=== PATIENT | male | born 1965 | race Caucasian/White ===

== ENCOUNTER 2018-09-06 00:39 | Emergency (ER) | payer OTHER, MEDICAID, SELFPAY ==
[2018-09-06] VITALS (7 sets, daily range): BP systolic 84–156; BP diastolic 48–114; PULSE 82–113; RESP 13–20; TEMP 37.7; O2SAT 97–100; BMI 27.3
[2018-09-06] MEDS: NITROGLYCERIN 0.4 MG SL TAB SL ×2 (00:42→00:52)
--- NOTE | 2018-09-06 00:50 | DI.RAD.S_ITS ---
PROCEDURE: XR CHEST 1V INDICATIONS: chest pain TECHNIQUE: One view of the chest was acquired. COMPARISON: [facility], , CHEST 2 VIEW, 07/14/2015, 11:02. FINDINGS: Surgical changes and devices: None. Lungs and pleura: No pleural effusions or pneumothorax. There is pulmonary vascular congestion and suggestion of pulmonary edema. Underlying small patch infiltrates cannot be excluded. Mediastinum: Mediastinal contours appear normal. Heart size is enlarged. Bones and chest wall: No suspicious bony lesions. Overlying soft tissues appear unremarkable. IMPRESSION: Congestive changes or mild pulmonary edema. Cannot rule out underlying small patch infiltrates/atelectasis. No pleural effusion or pneumothorax. Dictated by: Solo Proctor M.D. on 09/06/2018 at 10:12 Approved by: Solo Proctor M.D. on 09/06/2018 at 10:13
[2018-09-06] MEDS: SODIUM CHLORIDE 0.9% 500 ML 21 ML IV (00:59)
[2018-09-06 01:03] LABS: Add Manual Diff / Slide Review NO; Basophils Absolute Auto 0 /uL (0-100); Basophils Percent Auto 0.2 % (0-2); Eosinophils Absolute Auto 100 /uL (0-450); Eosinophils Percent Auto 0.7 % (2-4); Hematocrit 46.9 % (41-53); Hemoglobin 16.3 g/dL (13.5-17.5); Lymphocytes Absolute Auto 1200 /uL (1100-4500); Lymphocytes Percent Auto 13.3 % (25-40); Mean Corpuscular HGB Conc 34.7 % (30-36); Mean Corpuscular Hemoglobin 31.5 PG (26-34); Mean Corpuscular Volume 90.6 fL (80-100); Monocytes Absolute Auto 100 /uL (0-900); Monocytes Percent Auto 1.5 % (3-14); Neutrophils Absolute Auto 7800 /uL (1500-7000); Neutrophils Percent Auto 84.3 % (50-75); Platelet Count 171 X10^3/uL (150-400); Prothrombin Time 11.1 SECONDS (10.1-12.7); Red Blood Cell Count 5.17 X10^6/uL (4.5-5.9); Red Cell Distribution Width 12.9 % (11.6-14.8); White Blood Cell Count 9.3 X10^3/uL (4.5-11.0)
[2018-09-06 01:05] LABS: PTT Partial Thromboplastin Tim 30 SECONDS (26.4-36.2)
[2018-09-06 01:07] LABS: Alanine Aminotransferase 55 IU/L (21-72); Albumin 4.6 g/dL (3.5-5.0); Albumin Globulin Ratio 1.4 (1.0-2.8); Alkaline Phosphatase 103 U/L (38-126); Aspartate Aminotransferase 42 IU/L (17-59); BUN Creatinine Ratio 21.8 (6-22); Bilirubin Total 0.4 mg/dL (0.2-1.3); Blood Urea Nitrogen 24 mg/dL (9-20); Calcium 9.2 mg/dL (8.4-10.2); Carbon Dioxide 28 mmol/L (22-32); Chloride 103 mmol/L (98-107); Creatine Kinase 67 U/L (55-170); Estimated Glomerular Filt Rate > 60.0 mL/min (>60); Globulin 3.4 g/dL (1.7-4.1); Glucose 112 mg/dL (70-100); HEMOLYSIS 15 (0-50); Lipase 79 U/L (23-300); Potassium 3.5 mmol/L (3.4-5.1); Sodium 142 mmol/L (137-145)
[2018-09-06 01:18] LABS: Troponin I 0.019 ng/mL (0.01-0.034)
--- NOTE | 2018-09-06 01:18 | DI.US.S_ITS ---
PROCEDURE: US ABDOMEN COMPLETE INDICATIONS: epigastric pain TECHNIQUE: Real-time scanning was performed of the abdominal and retroperitoneal organs, with image documentation. COMPARISON: None. FINDINGS: Liver: Liver is normal in size and homogeneous in echotexture. Gallbladder: There is no gallstone. No gallbladder wall thickening or pericholecystic fluid. No sonographic Bunch's sign. Biliary ducts: Intrahepatic bile ducts are non-dilated. Extrahepatic bile duct caliber measures 5 mm. Normal is 6-7 mm or less in diameter, or 10 mm or less post-cholecystectomy. Pancreas: Visualized portions of the pancreas are sonographically normal. Spleen: Spleen is normal in size and homogeneous in echotexture. Kidneys: Kidneys are normal in size and echotexture. Right kidney measures 11.5 cm long; left kidney measures 11.3 cm long. No hydronephrosis or nephrolithiasis. No solid masses. Aorta: Visualized aorta is normal in caliber at less than 3 cm. Iliacs: Proximal common iliac arteries are normal in caliber at less than 2.5 cm. IVC: Intrahepatic inferior vena cava is patent. Miscellaneous: No free abdominal fluid. IMPRESSION: Unremarkable ultrasound examination of the abdomen. No finding to explain patient's clinical symptoms. Dictated by: Solo Proctor M.D. on 09/06/2018 at 10:39 Approved by: Solo Proctor M.D. on 09/06/2018 at 10:40
--- NOTE | 2018-09-06 01:19 | PC.NURSE ---
Pt reports My pain is getting worse It's really tight around my chest now. Provider notified, repeat ECG being perofrmed.
--- NOTE | 2018-09-06 01:51 | ED.CHESTPAIN ---
HPI - Chest Pain General Chief Complaint: Chest Pain Stated Complaint: CHEST PAIN ALL DAY Time Seen by Provider: 09/06/18 00:50 Source: patient and family Mode of arrival: ambulatory Limitations: no limitations History of Present Illness HPI narrative: 53-year-old nonsmoking male presents with his and a chief complaint of gradually worsening epigastric and chest pain over the course of the day. He states it is worse with a deep breath or eating. He denies any radiation of his pain. He has had no nausea or vomiting. He has no fever or shaking chills. He denies dizziness, weakness or lightheadedness. He denies recent travel, history of clot or recent travel. He admits to a brief episode yesterday and also last Friday. He has never had a stress test or any cardiac evaluation MD complaint: chest pain Onset (ago): hour(s) Duration: constant Onset: during rest Pain location: epigastric Severity: moderate Quality: tightness and aching Pain radiation: none Relieving factors: nothing Exacerbating factors: inspiration and eating Treatments prior to arrival chest pain: none Related Data Allergies Allergy/AdvReac Type Severity Reaction Status Date / Time No Known Drug Allergies Allergy Verified 09/06/18 01:54 Review of Systems Constitutional Denies chills, Denies fever(s), Denies lethargy and Denies weakness Eyes Denies change in vision, Denies eye discharge, Denies irritation and Denies loss of vision ENT Ears, Nose, Mouth, and Throat: Denies change in voice, Denies neck pain and Denies sore throat Cardiovascular Reports chest pain, Denies irregular heart rhythm, Denies lightheadedness, Denies palpitations, Denies dyspnea, Denies dyspnea on exertion and Denies orthopnea Respiratory Denies cough, Denies dyspnea, Denies dyspnea on exertion and Denies wheezing Gastrointestinal Gastrointestinal: Denies abdominal pain, Denies change in bowel habits, Denies diarrhea, Denies nausea and Denies vomiting Genitourinary Denies hematuria, Denies flank pain, Denies urinary incontinence and Denies urinary urgency Musculoskeletal Denies neck pain Integumentary/Breasts Denies pruritus, Denies erythema, Denies rash and Denies wounds Neurologic Denies confusion, Denies loss of vision and Denies weakness Psychiatric Denies anxiety, Denies confusion, Denies depression, Denies homicidal ideation and Denies suicidal ideation Endocrine Denies palpitations Hematologic/Lymphatic Denies easy bruising Allergic/Immunologic Denies wheezing [facility] Social History Smoking Status: Never smoker Exam Narrative Exam Narrative: GENERAL: Obviously uncomfortable, rubbing his epigastrium HEAD: Atraumatic. Normocephalic. No temporal or scalp tenderness. EYES: Pupils equal round and reactive. Extraocular motions intact. No scleral icterus. No injection or drainage. ENT: Nose without bleeding, purulent drainage or septal hematoma. Throat without erythema, tonsillar hypertrophy or exudate. Uvula midline. Airway patent. NECK: Trachea midline. No JVD or lymphadenopathy. Supple, nontender, no meningeal signs. CARDIOVASCULAR: Regular rate and rhythm without murmurs, gallops, or rubs. RESPIRATORY: Clear to auscultation. Breath sounds equal bilaterally. No wheezes, rales, or rhonchi. GASTROINTESTINAL: Abdomen soft, severe tenderness to palpation in epigastrium, mildpain in RUQ pain in right upper quadrant nondistended. No hepato-splenomegaly, or palpable masses. No guarding. EXTREMITIES: No clubbing, cyanosis, or edema. No joint tenderness, effusion, or edema noted. BACK: Nontender without deformity or crepitance. No flank tenderness. NEURO: AOx3. SKIN: No rash or erythema. Initial Vital Signs Initial Vital Signs: Vital Signs Temperature 99.9 F H 09/06/18 00:40 Pulse Rate 112 H 09/06/18 00:40 Respiratory Rate 13 09/06/18 00:40 Blood Pressure 156/114 H 09/06/18 00:40 Pulse Oximetry 98 09/06/18 00:40 Course Orders Ordered: ED Orders 09/06/18 EKG-12 Lead Routine EKG-12 Lead Routine 09/06/18 00:45 Complete Blood Count AUTO DIFF Stat Comprehensive Metabolic Panel Stat Lipase Stat Partial Thromboplastin Time Stat Prothrombin Time INR Stat Troponin & CK Cardiac Panel Stat 09/06/18 00:50 XR chest 1V Stat EKG-12 Lead Stat 09/06/18 01:18 US abdomen complete Stat 09/06/18 01:52 CT angio chest abdomen Stat 09/06/18 03:08 Troponin I Stat Sodium Chloride (Normal Saline 0.9%) 500 mls @ 21 mls/hr IV CONT SERGEY Last Admin: 09/06/18 00:59 Dose: 21 mls/hr Nitroglycerin (Nitrostat) 0.4 mg SL [id number] PRN PRN Reason: Chest Pain Last Admin: 09/06/18 00:52 Dose: 0.4 mg Admin: 09/06/18 00:42 Dose: 0.4 mg Discontinued Medications Albuterol (Ventolin Hfa Prepack) 1 box MISC SEEINSTR ONE Stop: 09/06/18 05:24 Last Admin: 09/06/18 05:24 Dose: 1 box Albuterol/Ipratropium (Duoneb) 3 ml INH NOW ONE Stop: 09/06/18 05:06 Last Admin: 09/06/18 05:06 Dose: 3 ml Al Hydrox/Mg Hydrox/Simethicone 20 ml/ Lidocaine HCl 15 ml 0 ml PO NOW ONE Stop: 09/06/18 04:14 Last Admin: 09/06/18 04:20 Dose: 35 ml Reevaluation(s) Reevaluation #1: patient experiences some relief after GI cocktail, but not total relief. Patient noted to have bronchospastic type cough and peak flow measured, he is found to be rather short of his predicted value. RT provides duoneb and patient feels near total and immediate relief Vital Signs - 8 hr 09/06/18 00:40 09/06/18 00:42 09/06/18 00:52 Temperature 99.9 F H Pulse Rate 112 H 113 H 107 H Respiratory Rate 13 Blood Pressure 156/114 H 156/114 H 127/78 Blood Pressure [Right Arm] Pulse Oximetry 98 09/06/18 01:02 09/06/18 02:46 09/06/18 05:06 Temperature Pulse Rate 99 H 104 H 113 H Respiratory Rate 18 20 Blood Pressure 84/48 L Blood Pressure [Right Arm] 133/80 Pulse Oximetry 100 97 MDM - Chest Pain Medical Records Data Attestation: I reviewed the patient's medical records. Lab Data Attestation: I reviewed the patient's lab results. Result diagrams: 09/06/18 00:45 09/06/18 00:45 Lab Results 09/06/18 09/06/18 09/06/18 Range/Units 00:45 00:45 00:45 WBC 9.3 (4.5-11.0) X10^3/uL RBC 5.17 (4.5-5.9) X10^6/uL Hgb 16.3 (13.5-17.5) g/dL Hct 46.9 (41-53) % MCV 90.6 (80-100) fL MCH 31.5 (26-34) PG MCHC 34.7 (30-36) % RDW 12.9 (11.6-14.8) % Plt Count 171 (150-400) X10^3/uL Neut % (Auto) 84.3 H (50-75) % Lymph % (Auto) 13.3 L (25-40) % [place] % (Auto) 1.5 L (3-14) % Eos % (Auto) 0.7 L (2-4) % Baso % (Auto) 0.2 (0-2) % Neut # (Auto) 7800 H (3839-3112) /uL Lymph # (Auto) 1200 (3382-0145) /uL [place] # (Auto) 100 (0-900) /uL Eos # (Auto) 100 (0-450) /uL Baso # (Auto) 0 (0-100) /uL PT 11.1 (10.1-12.7) SECONDS INR 1.0 (0.9-1.3) APTT 30 (26.4-36.2) SECONDS Sodium 142 (137-145) mmol/L Potassium 3.5 (3.4-5.1) mmol/L Chloride 103 (98-107) mmol/L Carbon Dioxide 28 (22-32) mmol/L BUN 24 H (9-20) mg/dL Creatinine 1.10 (0.66-1.25) mg/dL Estimated GFR > 60.0 (>60) mL/min BUN/Creatinine Ratio 21.8 (6-22) Glucose 112 H (70-100) mg/dL Calcium 9.2 (8.4-10.2) mg/dL Total Bilirubin 0.4 (0.2-1.3) mg/dL AST 42 (17-59) IU/L ALT 55 (21-72) IU/L Alkaline Phosphatase 103 (38-126) U/L Total Creatine Kinase 67 (55-170) U/L CK-MB (CK-2) TNP CK-MB (CK-2) Rel Index TNP Troponin I 0.019 (0.01-0.034) ng/mL Total Protein 8.0 (6.3-8.2) g/dL Albumin 4.6 (3.5-5.0) g/dL Globulin 3.4 (1.7-4.1) g/dL Albumin/Globulin Ratio 1.4 (1.0-2.8) Lipase 79 (23-300) U/L 09/06/18 Range/Units 03:08 WBC (4.5-11.0) X10^3/uL RBC (4.5-5.9) X10^6/uL Hgb (13.5-17.5) g/dL Hct (41-53) % MCV (80-100) fL MCH (26-34) PG MCHC (30-36) % RDW (11.6-14.8) % Plt Count (150-400) X10^3/uL Neut % (Auto) (50-75) % Lymph % (Auto) (25-40) % [place] % (Auto) (3-14) % Eos % (Auto) (2-4) % Baso % (Auto) (0-2) % Neut # (Auto) (1113-2176) /uL Lymph # (Auto) (1803-0225) /uL [place] # (Auto) (0-900) /uL Eos # (Auto) (0-450) /uL Baso # (Auto) (0-100) /uL PT (10.1-12.7) SECONDS INR (0.9-1.3) APTT (26.4-36.2) SECONDS Sodium (137-145) mmol/L Potassium (3.4-5.1) mmol/L Chloride (98-107) mmol/L Carbon Dioxide (22-32) mmol/L BUN (9-20) mg/dL Creatinine (0.66-1.25) mg/dL Estimated GFR (>60) mL/min BUN/Creatinine Ratio (6-22) Glucose (70-100) mg/dL Calcium (8.4-10.2) mg/dL Total Bilirubin (0.2-1.3) mg/dL AST (17-59) IU/L ALT (21-72) IU/L Alkaline Phosphatase (38-126) U/L Total Creatine Kinase (55-170) U/L CK-MB (CK-2) CK-MB (CK-2) Rel Index Troponin I 0.027 (0.01-0.034) ng/mL Total Protein (6.3-8.2) g/dL Albumin (3.5-5.0) g/dL Globulin (1.7-4.1) g/dL Albumin/Globulin Ratio (1.0-2.8) Lipase (23-300) U/L ECG Data Attestation: I personally reviewed and interpreted this ECG as follows: Interpretation: 1. NSR 114. RBBB. No ST elevations or depressions. No T wave abnormalities 2. NSR 102. RBBB. No change 3. NSR 94. RBBB no change MDM Narrative Medical decision making narrative: Multiple etiologies for patient's symptoms considered including: [Ischemic heart disease, thought less likely given lack of troponin despite time frame, reproducibility of pain, lack of ischemic findings on EKG. PE and dissection considered but thought less likely given lack of findings on angiography. Pancreatitis and gallbladder disease are considered given epigastric pain that is reproducible and worse with eating but lack of laboratory values or imaging to support this.] Patient's symptoms improved or duration of stay with above-stated therapies. Findings and discharge diagnosis discussed with patient/family followed by verbalization of understanding Return precautions discussed with patient/family whom verbalize understanding. Discharge Plan Departure Patient Disposition: Home Clinical Impression: Abdominal pain, acute, epigastric, Acute dyspnea Instructions: DI for Shortness of Breath, DI for Epigastric Pain Activity Restrictions/Additional Instructions: *You have been diagnosed with [ acute epigastric pain, acute dyspnea with bronchospasm ] *What to do: *Take medications as directed *Follow up with your primary care provider in 2-3 days, call for an appointment. Let them know you were seen in the Emergency Department and that we ask that you be seen in follow up *Return to ER if you should have any new, worsening or concerning symptoms, such as [ ] Referrals: Livan Webb MD [Primary Care Provider] -
--- NOTE | 2018-09-06 01:52 | DI.CT.S_ITS ---
PROCEDURE: CT ANGIO CHEST ABDOMEN INDICATIONS: severe epigastric pain, radiation to back TECHNIQUE: Precontrast 5 mm thick sections acquired from the lung apices to the iliac crests. After the administration of intravenous contrast, 2.5 mm thick sections again acquired from the lung apices to the iliac crests. 10 mm maximum intensity projection (MIP) oblique sagittal and coronal reformats were then acquired. For radiation dose reduction, the following was used: automated exposure control. COMPARISON: None. FINDINGS: Image quality: Excellent. AORTA: There is no thoracic or abdominal aortic aneurysm. No aortic dissection. CHEST: Lungs and pleura: The hazy groundglass opacities are seen scattered in bilateral lung magana suggestive of pulmonary edema versus pneumonitis. Multiple subcentimeter pulmonary nodules are seen scattered in posterior lateral periphery of bilateral upper and lower lobes measures up to 5 mm in size in left lingula segment and up to 7 mm in size adjacent to lateral pleural of right middle lobe. No pleural effusions or pneumothorax. Central and peripheral airways are patent and normal in caliber. Mediastinum: Heart size is enlarged, small pericardial effusion is seen. There is extensive mediastinal and bilateral hilar lymphadenopathy. Central pulmonary arteries are normal in size. Esophagus is normal in caliber. No hiatal hernias. Bones and chest wall: No axillary adenopathy by size criteria. Thyroid gland is within normal limits the. No suspicious bony lesions. No vertebral body compression fractures. ABDOMEN: Vasculature: Celiac trunk and mesenteric arteries are patent. Renal arteries are also patent. Solid organs: Liver is normal in size and enhancement. Gallbladder is within normal limits. Biliary system is non dilated. Pancreas enhances normally. Spleen is normal in size and enhancement. No adrenal nodules. Both kidneys are normal in size and enhancement, without hydronephrosis. Peritoneum and bowel: No free fluid or air. Bowel loops are normal in caliber and wall thickness. Nodes and vessels: Mildly prominent lymph nodes are seen adjacent to ileocecal junction and measures up to 1 cm in short axis diameter. Subcentimeter retroperitoneal lymph nodes are seen.. Inferior vena cava is normal in morphology. Bones: No suspicious bony lesions. No vertebral body compression fractures. Miscellaneous: No ventral hernias. IMPRESSION: 1. No aortic dissection or aneurysm. No evidence of pulmonary emboli. 2. Extensive mediastinal and hilar lymphadenopathy. Mildly prominent paraesophageal lymph node near GE junction. No axillary or supraclavicular lymphadenopathy. Finding could represent reactive inflammatory lymph nodes. Systemic process such as lymphoma cannot be entirely excluded. Clinical correlation and followup is recommended. 3. Numerous calcified and noncalcified subcentimeter nodules scattered in bilateral lung magana as above, consider followup CT study of the chest in 6-12 months for evaluation of stability. No significant discrepancy. Dictated by: Solo Proctor M.D. on 09/06/2018 at 9:27 Approved by: Solo Proctor M.D. on 09/06/2018 at 9:34
--- NOTE | 2018-09-06 02:39 | ED_ITS ---
HPI - Chest Pain General Chief Complaint: Chest Pain Stated Complaint: CHEST PAIN ALL DAY Time Seen by Provider: 09/06/18 00:50 Source: patient and family Mode of arrival: ambulatory Limitations: no limitations History of Present Illness HPI narrative: 53-year-old nonsmoking male presents with his and a chief complaint of gradually worsening epigastric and chest pain over the course of the day. He states it is worse with a deep breath or eating. He denies any radiation of his pain. He has had no nausea or vomiting. He has no fever or shaking chills. He denies dizziness, weakness or lightheadedness. He denies recent travel, history of clot or recent travel. He admits to a brief episode yesterday and also last Friday. He has never had a stress test or any cardiac evaluation MD complaint: chest pain Onset (ago): hour(s) Duration: constant Onset: during rest Pain location: epigastric Severity: moderate Quality: tightness and aching Pain radiation: none Relieving factors: nothing Exacerbating factors: inspiration and eating Treatments prior to arrival chest pain: none Related Data Allergies Allergy/AdvReac Type Severity Reaction Status Date / Time No Known Drug Allergies Allergy Verified 09/06/18 01:54 Review of Systems Constitutional Denies chills, Denies fever(s), Denies lethargy and Denies weakness Eyes Denies change in vision, Denies eye discharge, Denies irritation and Denies loss of vision ENT Ears, Nose, Mouth, and Throat: Denies change in voice, Denies neck pain and Denies sore throat Cardiovascular Reports chest pain, Denies irregular heart rhythm, Denies lightheadedness, Denies palpitations, Denies dyspnea, Denies dyspnea on exertion and Denies orthopnea Respiratory Denies cough, Denies dyspnea, Denies dyspnea on exertion and Denies wheezing Gastrointestinal Gastrointestinal: Denies abdominal pain, Denies change in bowel habits, Denies diarrhea, Denies nausea and Denies vomiting Genitourinary Denies hematuria, Denies flank pain, Denies urinary incontinence and Denies urinary urgency Musculoskeletal Denies neck pain Integumentary/Breasts Denies pruritus, Denies erythema, Denies rash and Denies wounds Neurologic Denies confusion, Denies loss of vision and Denies weakness Psychiatric Denies anxiety, Denies confusion, Denies depression, Denies homicidal ideation and Denies suicidal ideation Endocrine Denies palpitations Hematologic/Lymphatic Denies easy bruising Allergic/Immunologic Denies wheezing [facility] Social History Smoking Status: Never smoker Exam Narrative Exam Narrative: GENERAL: Obviously uncomfortable, rubbing his epigastrium HEAD: Atraumatic. Normocephalic. No temporal or scalp tenderness. EYES: Pupils equal round and reactive. Extraocular motions intact. No scleral icterus. No injection or drainage. ENT: Nose without bleeding, purulent drainage or septal hematoma. Throat without erythema, tonsillar hypertrophy or exudate. Uvula midline. Airway patent. NECK: Trachea midline. No JVD or lymphadenopathy. Supple, nontender, no meningeal signs. CARDIOVASCULAR: Regular rate and rhythm without murmurs, gallops, or rubs. RESPIRATORY: Clear to auscultation. Breath sounds equal bilaterally. No wheezes , rales, or rhonchi. GASTROINTESTINAL: Abdomen soft, severe tenderness to palpation in epigastrium, mildpain in RUQ pain in right upper quadrant nondistended. No hepato- splenomegaly, or palpable masses. No guarding. EXTREMITIES: No clubbing, cyanosis, or edema. No joint tenderness, effusion, or edema noted. BACK: Nontender without deformity or crepitance. No flank tenderness. NEURO: AOx3. SKIN: No rash or erythema. Initial Vital Signs Initial Vital Signs: Vital Signs Temperature 99.9 F H 09/06/18 00:40 Pulse Rate 112 H 09/06/18 00:40 Respiratory Rate 13 09/06/18 00:40 Blood Pressure 156/114 H 09/06/18 00:40 Pulse Oximetry 98 09/06/18 00:40 Course Orders Ordered: ED Orders 09/06/18 EKG-12 Lead Routine EKG-12 Lead Routine 09/06/18 00:45 Complete Blood Count AUTO DIFF Stat Comprehensive Metabolic Panel Stat Lipase Stat Partial Thromboplastin Time Stat Prothrombin Time INR Stat Troponin & CK Cardiac Panel Stat 09/06/18 00:50 XR chest 1V Stat EKG-12 Lead Stat 09/06/18 01:18 US abdomen complete Stat 09/06/18 01:52 CT angio chest abdomen Stat 09/06/18 03:08 Troponin I Stat Sodium Chloride (Normal Saline 0.9%) 500 mls @ 21 mls/hr IV CONT SERGEY Last Admin: 09/06/18 00:59 Dose: 21 mls/hr Nitroglycerin (Nitrostat) 0.4 mg SL [id number] PRN PRN Reason: Chest Pain Last Admin: 09/06/18 00:52 Dose: 0.4 mg Admin: 09/06/18 00:42 Dose: 0.4 mg Discontinued Medications Albuterol (Ventolin Hfa Prepack) 1 box MISC SEEINSTR ONE Stop: 09/06/18 05:24 Last Admin: 09/06/18 05:24 Dose: 1 box Albuterol/Ipratropium (Duoneb) 3 ml INH NOW ONE Stop: 09/06/18 05:06 Last Admin: 09/06/18 05:06 Dose: 3 ml Al Hydrox/Mg Hydrox/Simethicone 20 ml/ Lidocaine HCl 15 ml 0 ml PO NOW ONE Stop: 09/06/18 04:14 Last Admin: 09/06/18 04:20 Dose: 35 ml Reevaluation(s) Reevaluation #1: patient experiences some relief after GI cocktail, but not total relief. Patient noted to have bronchospastic type cough and peak flow measured, he is found to be rather short of his predicted value. RT provides duoneb and patient feels near total and immediate relief Vital Signs - 8 hr 09/06/18 00:40 09/06/18 00:42 09/06/18 00:52 Temperature 99.9 F H Pulse Rate 112 H 113 H 107 H Respiratory Rate 13 Blood Pressure 156/114 H 156/114 H 127/78 Blood Pressure [Right Arm] Pulse Oximetry 98 09/06/18 01:02 09/06/18 02:46 09/06/18 05:06 Temperature Pulse Rate 99 H 104 H 113 H Respiratory Rate 18 20 Blood Pressure 84/48 L Blood Pressure [Right Arm] 133/80 Pulse Oximetry 100 97 MDM - Chest Pain Medical Records Data Attestation: I reviewed the patient's medical records. Lab Data Attestation: I reviewed the patient's lab results. Result diagrams: 09/06/18 00:45 09/06/18 00:45 Lab Results 09/06/18 09/06/18 09/06/18 Range/Units 00:45 00:45 00:45 WBC 9.3 (4.5-11.0) X10^3/uL RBC 5.17 (4.5-5.9) X10^6/uL Hgb 16.3 (13.5-17.5) g/dL Hct 46.9 (41-53) % MCV 90.6 (80-100) fL MCH 31.5 (26-34) PG MCHC 34.7 (30-36) % RDW 12.9 (11.6-14.8) % Plt Count 171 (150-400) X10^3/uL Neut % (Auto) 84.3 H (50-75) % Lymph % (Auto) 13.3 L (25-40) % Bonner % (Auto) 1.5 L (3-14) % Eos % (Auto) 0.7 L (2-4) % Baso % (Auto) 0.2 (0-2) % Neut # (Auto) 7800 H (7742-2034) /uL Lymph # (Auto) 1200 (9994-4193) /uL Bonner # (Auto) 100 (0-900) /uL Eos # (Auto) 100 (0-450) /uL Baso # (Auto) 0 (0-100) /uL PT 11.1 (10.1-12.7) SECONDS INR 1.0 (0.9-1.3) APTT 30 (26.4-36.2) SECONDS Sodium 142 (137-145) mmol/L Potassium 3.5 (3.4-5.1) mmol/L Chloride 103 (98-107) mmol/L Carbon Dioxide 28 (22-32) mmol/L BUN 24 H (9-20) mg/dL Creatinine 1.10 (0.66-1.25) mg/dL Estimated GFR > 60.0 (>60) mL/min BUN/Creatinine Ratio 21.8 (6-22) Glucose 112 H (70-100) mg/dL Calcium 9.2 (8.4-10.2) mg/dL Total Bilirubin 0.4 (0.2-1.3) mg/dL AST 42 (17-59) IU/L ALT 55 (21-72) IU/L Alkaline Phosphatase 103 (38-126) U/L Total Creatine Kinase 67 (55-170) U/L CK-MB (CK-2) TNP CK-MB (CK-2) Rel Index TNP Troponin I 0.019 (0.01-0.034) ng/mL Total Protein 8.0 (6.3-8.2) g/dL Albumin 4.6 (3.5-5.0) g/dL Globulin 3.4 (1.7-4.1) g/dL Albumin/Globulin Ratio 1.4 (1.0-2.8) Lipase 79 (23-300) U/L 09/06/18 Range/Units 03:08 WBC (4.5-11.0) X10^3/uL RBC (4.5-5.9) X10^6/uL Hgb (13.5-17.5) g/dL Hct (41-53) % MCV (80-100) fL MCH (26-34) PG MCHC (30-36) % RDW (11.6-14.8) % Plt Count (150-400) X10^3/uL Neut % (Auto) (50-75) % Lymph % (Auto) (25-40) % Bonner % (Auto) (3-14) % Eos % (Auto) (2-4) % Baso % (Auto) (0-2) % Neut # (Auto) (8288-1319) /uL Lymph # (Auto) (4662-3338) /uL Bonner # (Auto) (0-900) /uL Eos # (Auto) (0-450) /uL Baso # (Auto) (0-100) /uL PT (10.1-12.7) SECONDS INR (0.9-1.3) APTT (26.4-36.2) SECONDS Sodium (137-145) mmol/L Potassium (3.4-5.1) mmol/L Chloride (98-107) mmol/L Carbon Dioxide (22-32) mmol/L BUN (9-20) mg/dL Creatinine (0.66-1.25) mg/dL Estimated GFR (>60) mL/min BUN/Creatinine Ratio (6-22) Glucose (70-100) mg/dL Calcium (8.4-10.2) mg/dL Total Bilirubin (0.2-1.3) mg/dL AST (17-59) IU/L ALT (21-72) IU/L Alkaline Phosphatase (38-126) U/L Total Creatine Kinase (55-170) U/L CK-MB (CK-2) CK-MB (CK-2) Rel Index Troponin I 0.027 (0.01-0.034) ng/mL Total Protein (6.3-8.2) g/dL Albumin (3.5-5.0) g/dL Globulin (1.7-4.1) g/dL Albumin/Globulin Ratio (1.0-2.8) Lipase (23-300) U/L ECG Data Attestation: I personally reviewed and interpreted this ECG as follows: Interpretation: 1. NSR 114. RBBB. No ST elevations or depressions. No T wave abnormalities 2. NSR 102. RBBB. No change 3. NSR 94. RBBB no change MDM Narrative Medical decision making narrative: Multiple etiologies for patient's symptoms considered including: [Ischemic heart disease, thought less likely given lack of troponin despite time frame, reproducibility of pain, lack of ischemic findings on EKG. PE and dissection considered but thought less likely given lack of findings on angiography. Pancreatitis and gallbladder disease are considered given epigastric pain that is reproducible and worse with eating but lack of laboratory values or imaging to support this.] Patient's symptoms improved or duration of stay with above-stated therapies. Findings and discharge diagnosis discussed with patient/family followed by verbalization of understanding Return precautions discussed with patient/family whom verbalize understanding. Discharge Plan Departure Patient Disposition: Home Clinical Impression: Abdominal pain, acute, epigastric, Acute dyspnea Instructions: DI for Shortness of Breath, DI for Epigastric Pain Activity Restrictions/Additional Instructions: *You have been diagnosed with [ acute epigastric pain, acute dyspnea with bronchospasm ] *What to do: *Take medications as directed *Follow up with your primary care provider in 2-3 days, call for an appointment. Let them know you were seen in the Emergency Department and that we ask that you be seen in follow up *Return to ER if you should have any new, worsening or concerning symptoms , such as [ ] Referrals: Livan Webb MD [Primary Care Provider] -
--- NOTE | 2018-09-06 03:12 | PC.NURSE ---
drawn by lab
[2018-09-06 03:51] LABS: Troponin I 0.027 ng/mL (0.01-0.034)
[2018-09-06] MEDS: MAG HYDROX/ALUMINUM/SIMETH SUS 20 ML, LIDOCAINE VISCOUS 2% 15 ML PO (04:20)
[2018-09-06] MEDS: ALBUTEROL/IPRATROPIUM 3 ML AMPUL INH (05:06)
[2018-09-06] MEDS: ALBUTEROL HFA PREPACK 1 BOX MISC (05:24)
--- NOTE | 2018-09-09 15:58 | PC.NURSE ---
Placed f/u call to patient. No answer at this time.
== END 2018-09-06 05:59 | disposition home or self-care (01) ==
PROVIDERS: Emergency Provider Emergency Medicine; PCP Family Medicine
DX: R10.9 Unspecified abdominal pain (principal); R10.13 Epigastric pain
CPT/HCPCS: 36415; 36591; 71045; 71275; 74175; 76700; 80053; 82550; 83690; 84484; 85025; 85610; 85730; 93005; 93010; 94150; 94640; 96360; 96361; 99283; 99285; Q9967

== ENCOUNTER 2020-08-28 08:09 | Outpatient (RCR) | payer OTHER, MEDICAID, SELFPAY ==
--- NOTE | 2020-08-28 11:49 | OT.OP.EVAL ---
Visit Care Team Role Provider Type Livan Webb MD Attending Provider Non-Staff Primary Care Provider Referring Provider Specialty: Family Practice Address: [address] [place] [address], [id number] Email: Occupational Therapy Initial Evaluation OT Outpatient Adult Evaluation Start: 08/28/20 10:08 Freq: Status: Active Protocol: Document 08/28/20 10:08 AMS (Rec: 08/28/20 10:28 AMS [id number]) General Information Visit Start Time 08:30 Visit Stop Time 09:15 Total Visit Minutes 45 Plan of Care Dates 08/28/2020-08/29/2020 Insurance Information [facility] Treatment Setting Outpatient Care Note Type Initial Evaluation Referring Physician Livan Webb MD (Family Medicine) Reason for Referral R hand pain Identification Confirmed Yes Assessment/Plan Treatment Assessment Patient is a 55 year-old right hand dominant male referred to outpatient OT secondary to right hand pain predominantly of the middle finger which has reportedly been getting worse . 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 Records indicate that PCP has referred patient for x-rays to determine if he has arthritis which was indicated as ' likely'. X-ray findings were not available at time of initial evaluation. Patient reports discomfort primarily in the morning of the right hand of the 3rd digit. Patient has been working on ' flattening' of hand on tabletop and intermittently uses Alleve for pain management (after work). He is not utilizing a splint. PMH: Significant for back pain; memory loss; depression. Evaluation findings: Patient indicated 2 out of 10 on the Pain Assessment Grid relative to the volar and dorsal surfaces of the 3rd digit of the right hand. Grid placed in paper chart. Mild edema of 3rd digit of the right hand. (-) locking of 3rd digit into flexion. Approximately 15 degrees flexion at rest of PIP joint of 3rd digit. Tendency of flexion at DIPJ w/ active flex of DIPJ despite use of tabletop for tactile input to volar surface of right hand. Tightness into flexion pattern . Discomfort reported in the PIP joint primarily w/ tabletop tendon glide w/ active flexion. (-) use of splint on 3rd digit. Patient was instructed in isolated DIPJ flexion w/ use of TT; use of personal oval-8 right to address flexion/ prevent further deformity; finger massage of right 3rd digit; tendon gliding exercises; MPJ combined PIPJ flexion passive stretch; passive wrist/digit flexor stretch; use of ice cup for addressing inflammation; use of heat/benefit of ROM in morning prior to engaging in work/recreational activities. Therapist also reviewed repetitive movements and/or sustained positions that may exacerbate symptoms. Patient denied need for follow -up/additional visits. Patient verbalized understanding of recommendations. Patient Recommendations Discharge to Home Exercise Program,Discharge from Occupational Therapy
== END 2020-09-01 14:25 ==
LOC: OT 08:09
PROVIDERS: PCP Family Medicine; Referring Provider Family Medicine; Visit Provider Family Medicine
DX: M79.641 Pain in right hand (principal)
CPT/HCPCS: 97165